=== PATIENT | male | born 1990 | race Two or more races ===

== ENCOUNTER 2018-12-07 00:37 | Inpatient (IN) | payer OTHER ==
[~2018-12-07] VITALS: Ht 165.1 cm; Wt 5.0 kg
[2018-12-09] MEDS ORDERED: PROTONIX40 MG PO (09:19)
== END 2018-12-09 13:37 | disposition home or self-care (01) | DRG 392 ==
LOC: ER 00:37 → ICU-2 11:00 → MEDJ 11:00 → SEC-K 12-08 13:39 → MEDJ 12-09 00:26
PROVIDERS: ADMIT Internal Medicine
PROC: 3E0336Z Introduction of Nutritional Substance into Peripheral Vein, Percutaneous Approach (ICD-10-PCS; 2018-12-07)
PROC: 30233N1 Transfusion of Nonautologous Red Blood Cells into Peripheral Vein, Percutaneous Approach (ICD-10-PCS; 2018-12-07)
PROC: 0DJ08ZZ Inspection of Upper Intestinal Tract, Via Natural or Artificial Opening Endoscopic (ICD-10-PCS; principal; 2018-12-08)
DX: K21.0 Gastro-esophageal reflux disease with esophagitis (principal); D62 Acute posthemorrhagic anemia; E44.0 Moderate protein-calorie malnutrition; K92.0 Hematemesis; K92.1 Melena